=== PATIENT | female | born 1985 | race Hispanic/Latino ===

== ENCOUNTER 2022-05-30 06:56 | Day surgery (SDC) | payer BC ==
[2022-05-25 16:11] LABS: BASOPHILS % (AUTO) 0.3 % (0.0-5.0); EOSINOPHILS % (AUTO) 1.6 % (0.0-8.0); HEMATOCRIT 37.9 % (36-48); LYMPHOCYTES % (AUTO) 26.6 % (21.0-51.0); MEAN CORPUSCULAR HEMOGLOBIN 30.6 pg (27.0-33.0); MEAN CORPUSCULAR VOLUME 92.7 fL (79-99); NEUTROPHILS % (AUTO) 66.2 % (40.0-77.0); PLATELET COUNT (AUTO) 267 K/uL (130-400); RED BLOOD CELL COUNT(AUTO) 4.09 MIL/uL (4.00-5.50); RED CELL DISTRIBUTION WIDTH 12.5 % (11.0-15.5); WHITE BLOOD COUNT (AUTO) 7.5 K/uL (4.8-10.8)
[2022-05-25 16:12] LABS: APPEARANCE,URINE CLEAR (CLEAR); BILIRUBIN,URINE NEGATIVE (NEGATIVE); COLOR,URINE COLORLESS (YELLOW); GLUCOSE, URINE (UA) NEGATIVE (NEGATIVE); KETONES,URINE NEGATIVE (NEGATIVE); LEUKOCYTE ESTERASE ,URINE NEGATIVE Leu/uL (NEGATIVE); NITRATE,URINE NEGATIVE (NEGATIVE); OCCULT BLOOD,URINE SMALL (NEGATIVE); PH,URINE 5.5 (5.0-8.0); PROTEIN,URINE NEGATIVE (NEGATIVE); UROBILINOGEN,URINE 0.2 mg/dL (0.2-1.0)
[2022-05-25 16:13] VITALS: BP 129/65
[2022-05-25 16:22] LABS: SQUAMOUS EPITHELIAL CELL,UR FEW /HPF (0-2)
[2022-05-25 16:26] LABS: ALBUMIN 3.8 g/dL (3.5-5.0); CREATININE 0.8 mg/dL (0.5-1.5); POTASSIUM 3.2 mmol/L (3.5-5.1); TOTAL PROTEIN, SERUM 7.1 g/dL (6.0-8.3)
[~2022-05-30] VITALS: Ht 165.1 cm; Wt 81.2 kg
[2022-05-30] VITALS (17 sets, daily range): BP systolic 100–137; BP diastolic 44–83
[~2022-05-30 06:56] MED LIST: ORAL CONTRACEPTIVE PO
[2022-05-30] MEDS ORDERED: LACTATED RINGERS 1000ML 0 ML IV ONE (08:31)
[2022-05-30] MEDS ORDERED: CEFAZOLIN SODIUM 2 GM VIAL ONE (08:31)
[2022-05-30] MEDS ORDERED: CEFAZOLIN SODIUM 1 GM VIAL ONE (08:47)
[2022-05-30] MEDS ORDERED: LACTATED RINGERS 1000ML 1,000 ML IV ONE (08:47)
[2022-05-30 08:52] LABS: CREATININE 0.7 mg/dL (0.5-1.5); POTASSIUM 4.1 mmol/L (3.5-5.1)
[2022-05-30] MEDS ORDERED: DEXAMETHASONE SOD PHOSPHATE 10MG/ML 1ML VIAL ONE (11:57)
[2022-05-30] MEDS ORDERED: ONDANSETRON 4MG INJ ONE ×2 (11:57→13:15)
[2022-05-30] MEDS ORDERED: LIDOCAINE PF 100MG/5ML (2%) SYRINGE 5ML ONE (11:57)
[2022-05-30] MEDS ORDERED: FENTANYL CITRATE PF 50 MCG/1 ML 2ML VIAL ONE (11:57)
[2022-05-30] MEDS ORDERED: PROPOFOL 10 MG/ML 20ML VIAL IV ONE (11:57)
[2022-05-30] MEDS ORDERED: MIDAZOLAM HCL 1 MG/ML 2ML VIAL ONE (11:58)
[2022-05-30] MEDS ORDERED: BUPIVACAINE/PF 0.25% 10ML VIAL IJ ONE (12:33)
[2022-05-30] MEDS ORDERED: KETOROLAC 30MG VIAL (30MG/ML) ONE (12:41)
[2022-05-30] MEDS ORDERED: SUCCINYLCHOLINE CHLORIDE 20 MG/ML 10 ML VIAL ONE (12:41)
[2022-05-30] MEDS ORDERED: LIDOCAINE HCL-MPF 2% 10ML AMP IJ ONE (12:41)
[2022-05-30] MEDS ORDERED: MEPERIDINE-PF 25 MG/ML SYG ONE (13:15)
== END 2022-05-30 15:53 | disposition home or self-care (01) ==
LOC: DAH 06:56
PROVIDERS: ATTEND Student in an Organized Health Care Education/Training Program
DX: L02.214 Cutaneous abscess of groin (principal); Z20.822 Contact with and (suspected) exposure to COVID-19; K61.0 Anal abscess; Z98.890 Other specified postprocedural states; Z82.49 Family history of ischemic heart disease and other diseases of the circulatory system; Z83.3 Family history of diabetes mellitus
CPT/HCPCS: 80053; 84703; 85025; 81001; 11042; 10060; 87426; 80048; 87070; 87076; 81025; 36415 ×2; A6260; A4663; J7030; A4452; J7120; J3010; J1100; J0330; J2001; J2250; J2704; J2405 ×2; J1885; J3490 ×2; J2175; J0690; A4215; A4223; A4222; A4221